=== PATIENT | female | born 1930 | race Caucasian/White ===

== ENCOUNTER 2016-12-28 11:38 | Emergency (ER) | payer MEDICARE, OTHER ==
[2016-12-28 14:16] VITALS: BP 158/78
--- NOTE | 2016-12-28 15:02 | EDM.PDOC ---
ED HPI GENERAL MEDICAL PROBLEM - General Chief Complaint: Back Pain or Injury Stated Complaint: LOW BACK IS PAINFUL Time Seen by Provider: 12/28/16 14:58 Source of Information: Reports: Patient History Limitations: Reports: No Limitations - History of Present Illness INITIAL COMMENTS - FREE TEXT/NARRATIVE: Pt with worsening back pain today. Denies new injury. History of osteoporosis and compression fracture. Did take Tylenol for pain without improvement so decided to come in today. Denies urinary symptoms. Denies numbness or tingling. Onset: Sudden Duration: Intermittent Location: Reports: Back Quality: Reports: Ache Severity: Moderate Improves with: Reports: None Worsens with: Reports: Movement Context: Reports: Activity Associated Symptoms: Reports: No Other Symptoms - Related Data Allergies Allergy/AdvReac Type Severity Reaction Status Date / Time [id number]-Sln Reductase Allergy Muscle Verified 12/28/16 14:44 Inhibitor Aches Home Meds: Home Meds Pantoprazole [Pantoprazole Sodium] 11/25/14 [History] traMADol HCl [Tramadol HCl] 11/25/14 [History] Past Medical History Other HEENT History: esophageal ca Social & Family History - Tobacco Use Smoking Status *Q: Never Smoker Years of Tobacco use: 15 Used Tobacco, but Quit: Yes Month Tobacco Last Used: quit 20 years ago Second Hand Smoke Exposure: No - Alcohol Use Days Per Week of Alcohol Use: 3 Number of Drinks Per Day: 1 Total Drinks Per Week: 3 - Recreational Drug Use Recreational Drug Use: No ED ROS GENERAL - Review of Systems Review Of Systems: See Below Constitutional: Reports: No Symptoms HEENT: Reports: No Symptoms Respiratory: Reports: No Symptoms Cardiovascular: Reports: No Symptoms Endocrine: Reports: No Symptoms GI/Abdominal: Reports: No Symptoms : Reports: No Symptoms Musculoskeletal: Reports: Back Pain Skin: Reports: No Symptoms ED EXAM,LOWER BACK PAIN/INJURY - Physical Exam Exam: See Below Exam Limited By: No Limitations General Appearance: Alert, WD/WN, No Apparent Distress Ears: Normal External Exam, Normal Canal, Hearing Grossly Normal, Normal TMs Nose: Normal Inspection, Normal Mucosa, No Blood Throat/Mouth: Normal Inspection, Normal Lips, Normal Teeth, Normal Gums, Normal Oropharynx, Normal Voice, No Airway Compromise Head: Atraumatic, Normocephalic Neck: Normal Inspection, Supple, Non-Tender, Full Range of Motion Respiratory/Chest: No Respiratory Distress, Lungs Clear, Normal Breath Sounds, No Accessory Muscle Use, Chest Non-Tender Cardiovascular: Normal Peripheral Pulses, Regular Rate, Rhythm, No Edema, No Gallop, No JVD, No Murmur, No Rub GI/Abdominal: Normal Bowel Sounds, Soft, Non-Tender, No Organomegaly, No Distention, No Abnormal Bruit, No Mass Back Exam: Normal Inspection, Full Range of Motion, NT Extremities: Normal Inspection, Normal Range of Motion, Non-Tender, No Pedal Edema, Normal Capillary Refill Neurological: Alert, Normal Mood/Affect, Normal Dorsiflexion, CN II-XII Intact, Normal Plantar Flexion, Normal Gait, Normal Reflexes, No Motor/Sensory Deficits , Oriented x 3 Course - Vital Signs Last Recorded V/S: Last Vital Signs Temp 97.8 F 12/28/16 14:13 Pulse 78 12/28/16 14:13 Resp 18 12/28/16 14:13 BP 158/78 H 12/28/16 14:13 Pulse Ox 96 12/28/16 14:13 - Orders/Labs/Meds Orders: Active Orders 24 hr Category Date Time Status Lumbar Spine 2 or 3V [CR] Stat Exams 12/28/16 14:39 Taken Thoracic Spine 3V [CR] Stat Exams 12/28/16 14:39 Taken Labs: Laboratory Tests 12/28/16 Range/Units 14:45 Urine Color Yellow Urine Appearance Clear Urine pH 5.0 (4.5-8.0) Ur Specific [place] 1.015 (1.008-1.030) Urine Protein Negative (NEGATIVE) mg/dL Urine Glucose (UA) Normal (NEGATIVE) mg/dL Urine Ketones Negative (NEGATIVE) mg/dL Urine Occult Blood Negative (NEGATIVE) Urine Nitrite Negative (NEGATIVE) Urine Bilirubin Negative (NEGATIVE) Urine Urobilinogen Normal (NORMAL) mg/dL Ur Leukocyte Esterase Negative (NEGATIVE) Urine RBC 0-5 (0-5) Urine WBC 0-5 (0-5) Ur Epithelial Cells Few Amorphous Sediment Few Urine Bacteria Rare Urine Mucus Few Meds: Medications Discontinued Medications Generic Name Dose Route Start Last Admin Trade Name Freq PRN Reason Stop Dose Admin Ibuprofen 800 mg 12/28/16 15:31 12/28/16 15:48 Motrin PO 12/28/16 15:32 800 mg ONETIME ONE Administration Departure - Departure Time of Disposition: 15:51 Disposition: Home, Self-Care 01 Condition: Good Clinical Impression: Back pain - Discharge Information Instructions: Back Pain, Adult, [id number] Referrals: PCP,None [Primary Care Provider] - Forms: ED Department Discharge Additional Instructions: UA normal. Xrays of lumbar and thoracic spine taken. No acute fracture noted but previous compression fractures are present. Will have radiology overread and compare. Ibuprofen 800mg po given. Pt will be discharged to home today. Encouraged ice, Ibuprofen for pain. Pt unsure if she has taken narcotics in the past and lives alone. To followup with primary care this week if pain not controlled with OTC meds. May benefit from physical therapy also. - Problem List & Annotations (1) Back pain SNOMED Code(s): 200302405 Code(s): M54.9 - DORSALGIA, UNSPECIFIED Status: Acute Priority: Medium Current Visit: Yes - My Orders Last 24 Hours: My Active Orders 12/28/16 14:39 Lumbar Spine 2 or 3V [CR] Stat Thoracic Spine 3V [CR] Stat - Assessment/Plan Last 24 Hours: My Active Orders 12/28/16 14:39 Lumbar Spine 2 or 3V [CR] Stat Thoracic Spine 3V [CR] Stat
[2016-12-28] MEDS ORDERED: Ibuprofen 800 MG Tab PO ONE (15:31)
--- NOTE | 2016-12-29 09:31 | CR ---
Lumbar Spine 2 or 3V, Thoracic Spine 3V INDICATION: back pain, history of compression fracture FINDINGS: 5 lumbar type vertebral bodies. 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 Lum bar disc space height is relatively well-maintained. Presumed Schmorl's node in the superior endplat e of L4. Mild upper thoracic curve. Compression fractures of the 8 and T9 with near vertebra plana appearance , present on prior chest x-ray from 2015. There is a moderate associated kyphotic deformity. Diffuse osteopenia. Exam otherwise negative.
== END 2016-12-28 16:09 | disposition home or self-care (01) ==
LOC: JP.ED 11:38
DX: M54.9 Dorsalgia, unspecified (principal); M81.0 Age-related osteoporosis without current pathological fracture; Z88.8 Allergy status to other drugs, medicaments and biological substances; Z85.01 Personal history of malignant neoplasm of esophagus
CPT/HCPCS: 72072; 72100; 81001; 99284; A9270; 99283

== ENCOUNTER 2017-01-19 13:25 | Emergency (ER) | payer MEDICARE, OTHER ==
[2017-01-19 14:25] VITALS: BP 181/103
--- NOTE | 2017-01-19 15:06 | EDM.PDOC ---
ED HPI GENERAL MEDICAL PROBLEM - General Chief Complaint: Back Pain or Injury Stated Complaint: BACK PAIN & LT LEG PAIN Time Seen by Provider: 01/19/17 14:45 Source of Information: Reports: Patient History Limitations: Reports: No Limitations - History of Present Illness INITIAL COMMENTS - FREE TEXT/NARRATIVE: 78-year-old female with low back pain who was evaluated just a few days ago and found to have compression fractures now returns with pain extending through the back of the left hip and down her leg. She is having difficulty walking and would like something better for pain so she can get to [place]. They're planning on leaving in the next couple of days. She once had tramadol after a surgery that work well for her. She has no fevers or chills, significant weakness of the leg, and has had no recent trauma. Location: Reports: Back, Lower Extremity, Left Quality: Reports: Ache, Sharp Severity: Moderate Worsens with: Reports: Other (also worse with weightbearing), Movement Associated Symptoms: Reports: No Other Symptoms Middle Back Pain Score (Numeric/FACES): 9 - Related Data Allergies Allergy/AdvReac Type Severity Reaction Status Date / Time [id number]-[id number] Reductase Allergy Muscle Verified 01/19/17 14:22 Inhibitor Aches Home Meds: Home Meds NK [No Known Home Meds] 01/19/17 [History] Past Medical History Other HEENT History: esophageal ca Cardiovascular History: Reports: High Cholesterol, Hypertension 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 Waiting to have PET SCAN. GI Surgical History: Reports: Colonoscopy Social & Family History - Tobacco Use Smoking Status *Q: Former Smoker Years of Tobacco use: 15 Packs/Tins Daily: 1 Used Tobacco, but Quit: Yes Month Tobacco Last Used: 0 Second Hand Smoke Exposure: No - Caffeine Use Caffeine Use: Reports: Coffee - Alcohol Use Days Per Week of Alcohol Use: 3 Number of Drinks Per Day: 1 Total Drinks Per Week: 3 - Recreational Drug Use Recreational Drug Use: No ED ROS GENERAL - Review of Systems Review Of Systems: See Below Constitutional: Denies: Fever, Chills Respiratory: Denies: Shortness of Breath Cardiovascular: Denies: Chest Pain GI/Abdominal: Denies: Abdominal Pain : Reports: No Symptoms Skin: Denies: Rash ED EXAM,LOWER BACK PAIN/INJURY - Physical Exam Exam: See Below Exam Limited By: No Limitations General Appearance: Alert, No Apparent Distress (looks comfortable while lying still) Head: Atraumatic Respiratory/Chest: No Respiratory Distress, Lungs Clear Extremities: Other (patient does have pain with flexion of the left hip and rotation passively. No palpation tenderness over the greater trochanteric area. No lower extremity numbness or weakness compared to the right leg.) Course - Vital Signs Last Recorded V/S: Last Vital Signs Temp 97.7 F 01/19/17 14:26 Pulse 85 01/19/17 14:26 Resp 18 01/19/17 14:26 BP 181/103 H 01/19/17 14:26 Pulse Ox 92 L 01/19/17 14:26 - Re-Assessments/Exams Free Text/Narrative Re-Assessment/Exam: 01/19/17 15:04 Copies of the patient's x-rays were made and given to the patient to take with her for her move to [place]. She was given 15 tramadol to take one every 4-6 hours and encouraged to try to stay active. She can return if worsening. Departure - Departure Time of Disposition: 15:51 Disposition: Home, Self-Care 01 Condition: Fair Clinical Impression: Sciatica Qualifiers: Laterality: left Qualified Code(s): M54.32 - Sciatica, left side - Discharge Information Instructions: Sciatica, [id number] Referrals: PCP,None [Primary Care Provider] - Forms: ED Department Discharge Care Plan Goals: Continue to try to stay active, pain medications as prescribed and return at any time if worsening or concerns.
== END 2017-01-19 15:51 | disposition home or self-care (01) ==
LOC: JP.ED 13:25
DX: M54.42 Lumbago with sciatica, left side (principal); E78.00 Pure hypercholesterolemia, unspecified; I10 Essential (primary) hypertension; E03.9 Hypothyroidism, unspecified; M81.0 Age-related osteoporosis without current pathological fracture; Z87.891 Personal history of nicotine dependence; Z88.8 Allergy status to other drugs, medicaments and biological substances
CPT/HCPCS: 99283